=== PATIENT | male | born 1990 | race African-American/Black ===

== ENCOUNTER 2018-05-06 11:33 | Emergency (ER) | payer MEDICAID, SELFPAY | END 2018-05-06 12:20 | disposition home or self-care (01) | LOC: MADERS 11:33 | DX: R51 Headache (principal) | CPT/HCPCS: 99281 ==

== ENCOUNTER 2025-05-15 10:33 | Emergency (ER) | payer BC, OTHER ==
[2025-05-15] MEDS ORDERED: Acetaminophen 500 MG TAB ONE (10:55)
== END 2025-05-15 11:20 | disposition home or self-care (01) ==
LOC: MADERS 10:33
DX: S60.211A Contusion of right wrist, initial encounter (principal); W23.0XXA Caught, crushed, jammed, or pinched between moving objects, initial encounter
CPT/HCPCS: 99283